=== PATIENT | female | born 1960 | race Caucasian/White ===

== ENCOUNTER 2021-06-18 17:40 | Emergency (ER) | payer OTHER, SELFPAY ==
[2021-06-18 17:45] VITALS: BP 145/89; PULSE 92; RESP 16; TEMP 36.7; O2SAT 99
--- NOTE | 2021-06-18 17:48 | ED.DIZZY ---
HPI - Dizziness General Chief Complaint: Dizziness Stated Complaint: DIZZY Time Seen by Provider: 06/18/21 17:48 Source: patient and RN notes reviewed History of Present Illness HPI Narrative: Patient is 60-year-old female who presents the urgent care with complaints of dizziness that started this morning. Patient states that it increases with bending over and nearly subsides if she sits up straight. Patient denies of any dizziness while walking. Patient states that she checked her blood pressure this morning which was normal. Patient denies of any headaches, changes in vision or chest pain. Patient denies of any history of vertigo but states she does have history of migraines. Patient states that she is tried taking Zyrtec and Benadryl without any relief. Denies of any fevers or other upper respiratory complaints. No other acute complaints. No acute distress noted. Patient aware of the plan of care. Some parts of this dictation were generated by voice recognition software and may contain typographical and/or grammatical inaccuracies. Related Data Allergies Allergy/AdvReac Type Severity Reaction Status Date / Time lincomycin Allergy Unknown RASH Verified 06/18/21 17:45 sulfamethoxazole Allergy Unknown RASH Verified 06/18/21 17:45 trimethoprim Allergy Unknown RASH Verified 06/18/21 17:45 Review of Systems Review of Systems: CONSTITUTIONAL: Denies fever, chills, or sweats. EYES: Denies visual changes, redness, or discharge. ENT: Denies rhinorrhea, congestion, sore throat, or otalgia. CARDIOVASCULAR: Denies chest pain, palpitations, or edema. RESPIRATORY: Denies cough or dyspnea. GASTROINTESTINAL: Denies abdominal pain, nausea, vomiting, or diarrhea. GENITOURINARY: Denies dysuria or hematuria. SKIN: Denies rash or itching. MUSCULOSKELETAL: Denies back pain, joint pain, or myalgia. NEUROLOGIC: Denies headache, numbness, or weakness. Reports of dizziness All other systems reviewed are negative, except as documented in HPI. PMFSH Comments At the time of my signature, I reviewed and agree with the nursing past medical, surgical, social, and family history. There is no relevant family history pertinent to the patient complaint. Exam Narrative: GENERAL: This is a well-nourished, well-developed patient, in no apparent distress. HEAD: normocephalic, atraumatic. EYES: PERRL. Sclera clear/white. Vision is grossly intact. EARS: External ears normal, auditory canals clear and without drainage, mild fluid noted behind left TM without otitis. TMs normal without perforation. Hearing grossly intact. NOSE: External nose normal with no obvious nasal discharge, nares without redness, no rhinorrhea. THROAT: Mucous membranes moist, posterior pharynx clear. Mild postnasal drainage NECK: Neck supple CARDIOVASCULAR: Regular rate and rhythm without murmurs, gallops, or rubs. RESPIRATORY: Clear to auscultation. Breath sounds equal bilaterally. No wheezes, rales, or rhonchi. SKIN: warm, intact with no suspicious lesions or rash, good texture and turgor. NEURO: awake, alert, and oriented to person, place and time. There were no obvious focal neurologic abnormalities. EXTREMITIES: No clubbing, cyanosis, or edema. Course Course Level of Care: Express Care Visit Vital Signs Vital signs: Vital Signs Temperature 98.1 F 06/18/21 17:45 Pulse Rate 92 06/18/21 17:45 Respiratory Rate 16 06/18/21 17:45 Blood Pressure 145/89 H 06/18/21 17:45 Pulse Oximetry 99 06/18/21 17:45 Temperature 98.1 F 06/18/21 17:45 Pulse Rate 92 06/18/21 17:45 Respiratory Rate 16 06/18/21 17:45 Blood Pressure 145/89 H 06/18/21 17:45 Pulse Oximetry 99 06/18/21 17:45 Reviewed-patient is informed that they may have pre-hypertension or hypertension based on a blood pressure reading in the department. I recommend the patient call the primary care provider listed on their discharge instructions or a physician of their choice this week to arrange follow-
[2021-06-18 18:11] VITALS: BP 135/69; PULSE 87
[2021-06-18 18:12] VITALS: BP 146/78; PULSE 91
[2021-06-18 18:13] VITALS: BP 135/75; PULSE 96
--- NOTE | 2021-06-18 18:18 | ECG_ITS ---
Measurements Intervals [place] Rate: 78 P: 56 [place]: 131 QRS: 74 QRSD: 90 T: 10 QT: 380 QTc: 435 Interpretive Statements SINUS RHYTHM LOW QRS VOLTAGE IN PRECORDIAL LEADS BASELINE ARTIFACT- II, III, AVL, AVF BORDERLINE ECG Electronically Signed On 06-18-2021 20:28:27 AUDIO VIDEO TECHNICIAN by Salvador Chin D.O.
[2021-06-18 18:28] LABS: Glucose Point of Care 116 mg/dl (65-105)
--- NOTE | 2021-06-18 19:04 | PC.NURSE ---
1820 EKG and orthostatics completed and reviewed by provider.
== END 2021-06-18 18:35 | disposition home or self-care (01) ==
PROVIDERS: Emergency Provider Nurse Practitioner Family; PCP Family Medicine
DX: R42 Dizziness and giddiness (principal)
CPT/HCPCS: 82948; 93005; 99213; G0463